=== PATIENT | male | born 1995 | race Caucasian/White ===

== ENCOUNTER 2025-03-11 08:59 | Emergency (ER) | payer OTHER ==
[~2025-03-11] VITALS: Ht 170.2 cm; Wt 82.0 kg
--- NOTE | 2025-03-11 09:28 | ED.PDOC ---
Agustint. trauma (HPI) HPI Comments 29 y/o M, AMBERLY, presents to the ED for CC of s/p fall. EMS reports, patient is coming from store where he suffered a trip and fall. Following trauma, patient is unable to ambulate; complains of current lower back numbness and pain to the back of his head. Patient denies loss of consciousness, nausea, vomiting, or bl urred vision. No other symptoms or modifying factors present at this time. Chief Complaint: Back Pain Time Seen by MD: 09:10 Reviewed notes: Nurses Notes, Medications, Allergies Home Meds Active Scripts Ibuprofen Micronized (MOTRIN TABLET) 600 Mg Tb, 600 MG PO TID PRN for 5 Days, #15 TAB *Black box warning-NSAIDS can increase risk of FL & hypertension, GI irritation, ulceration, bleed, perferation. Do not use post cardiac surgery. Use short duration/lowest effective dose. Prov:TOBY CARTER MD 03/11/25 Information Source: Patient Mode of Arrival: EMS Severity: Moderate Timing: Minutes Duration: Since onset Prehospital treatment: None Location: Back Location of laceration: None Mechanism: Fall Associated signs and symtoms: None Past Medical History PAST MEDICAL HISTORY: Denies Surgical History: Denies all surgeries Family History Family History: Unknown Social History Smoker: Non-Smoker Alcohol: Denies ETOH Use Drugs: Denies Drug Use Lives In: Home Constitutional: denies: chills, diaphoresis, fatigue, fever, malaise, sweats, weakness, others EENTM: denies: blurred vision, double vision, ear bleeding, ear discharge, ear drainage, ear pain, ear ringing, eye pain, eye redness, hearing loss, mouth pain, mouth swelling, nasal discharge, nose bleeding, nose congestion, nose pain, photophobia, tearing, throat pain, throat swelling, voice changes, others Respiratory: denies: cough, hemoptysis, orthopnea, SOB at rest, shortness of breath, SOB with excertion, stridor, wheezing, others Cardiovascular: denies: chest pain, dizzy spells, diaphoresis, Dyspnea on e xertion, edema, irregular heart beat, left arm pain, lightheadedness, palpitations, PND, syncope, others Gastrointestinal: denies: abdomen distended, abdominal pain, blood streaked bowels, constipated, diarrhea, dysphagia, difficulty swallowing, hematemesis, melena, nausea, poor appetite, poor fluid intake, rectal bleeding, rectal pain, vomiting, others Genitourinary: denies: burning, dysuria, flank pain, frequency, hematuria, incontinence, penile discharge, penile sore, pain, testicle pain, testicle swelling, urgency, others Neurological: reports: others (lower back numbness); denies: dizziness, fainting, headache, left sided numbness, left sided weakness, numbness, pares thesia, pre-existing deficit, right sided numbness, right sided weakness, seizure, speech problems, tingling, tremors, weakness Musculoskeletal: denies: back pain, gout, joint pain, joint swelling, muscle pain, muscle stiffness, neck pain, others Integumetry: denies: bruises, change in color, change in hair/nails, dryness, laceration, lesions, lumps, rash, wounds, others Allergic/Immunocompromised: denies: Difficulty Healing, Frequent Infections, Hives, Itching, others Hematologic/Lymphatic: denies: anemia, blood clots, easy bleeding, easy bruisi ng, swollen glands, others Endocrine: denies: excessive hunger, excessive sweating, excessive thirst, exce ssive urination, flushing, intolerance to cold, intolerance to heat, unexplained weight gain, unexplained weight loss, others Psychiatric: denies: anxiety, bipolar disorder, depression, hopeless, panic disorder, schizophrenia, sleepless, suicidal, others All Other Systems: Reviewed and Negative Physical Exam General Appearance: Moderate Distress HEENT: Normal ENT Inspection, Pharynx Normal, TMs Normal Neck: Full Range of Motion, Non-Tender, Normal, Normal Inspection Respiratory: Chest Non-Tender, Lungs Clear, No Accessory Muscle Use, No Respiratory Distress, Normal Breath Sounds Cardiovascular: No Edema, No JVD, No Murmur, No Gallop, Normal Peripheral Pulses, Regular Rate/Rhythm Breast Exam: Deferred Gastrointestinal: No Organomegaly, Non Tender, No Pulsatile Mass, Normal Bowel Sounds, Soft Genitalia: Deferred Pelvic: Deferred Rectal: Deferred Extremities: No calf tenderness, No pedal edema Musculoskeletal : Apperance: Normal Neurologic: Alert, No Motor Deficits, No Sensory Deficits Cerebellar Function: NOT DONE Reflexes: NOT DONE Skin: Dry, Normal Color, Warm Lymphatic: No Adenopathy Was a procedure done? Was a procedure done?: No Differential Diagnosis Multiple Trauma: Fractures, Spine Injury Neck Injury: Cervical Fracture X-Ray, Labs, Meds, VS Vital Signs Date Time Temp Pulse Resp B/P (MAP) Pulse Ox O2 Delivery O2 Flow Rate FiO2 03/11/25 09:07 98.3 81 16 125/80 (95) [address] [address] Ph: [phone] DIAGNOSTIC IMAGING Diagnostic Imaging Report : [id number] Signed PATIENT: RAMONA SALINAST: [id number] UNIT: [id number] : 1995 LOC: ER ROOM / BED: / AGE / SEX: 29 / M ADM STATUS: REG ER SERVICE 2 ORDERING PHYSICIAN: TOBY CARTER MD PROCEDURE(s): LS - LUMBAR SPINE 4+ VIEW REASON: fall ORDER NUMBER(s): [id number], ACCESSION NUMBER(s): [id number] EXAM: XY LUMBAR SPINE 4+ VIEW HISTORY: fall COMPARISON: None TECHNIQUE: Lumbar spine 3 views FINDINGS: The vertebral bodies are normal in height. There is normal alignment of the vertebrae. Disc spaces are maintained. Mild multilevel discogenic endplate changes are seen. Posterior facet arthropathy is seen at L3-S1 levels. The sacroiliac joints are intact. Paraspinal soft tissues are within normal l imits. IMPRESSION: 1. No acute osseous abnormality. 2. Multilevel degenerative disc disease and posterior facet arthropathy. ATED BY: STACY LAST MD DICTATED DATE/TIME: 03/11/25 1032 SIGNED BY: STACY LAST MD SIGNED DATE/TIME: 03/11/25 103 CC: [address] [address] Ph: [phone] DIAGNOSTIC IMAGING Diagnostic Imaging Report : [id number] Signed PATIENT: RAMONA SALINAST: [id number] UNIT: [id number] : 1995 LOC: ER ROOM / BED: / AGE / SEX: 29 / M ADM STATUS: REG ER SERVICE 0923 ORDERING PHYSICIAN: TOBY CARTER MD PROCEDURE(s): THOSP - SPINE THORACIC 2VIEW REASON: fall ORDER NUMBER(s): [id number], ACCESSION NUMBER(s): [id number] EXAM: XY SPINE THORACIC 2VIEW HISTORY: fall COMPARISON: None FINDINGS: Thoracic vertebrae are normal in height. There is normal alignment of the vertebrae. Disc spaces are maintained. No significant discogenic endplate change is noted. Paraspinal soft tissues are unremarkable. IMPRESSION: 1. No acute osseous abnormality. ATED BY: STACY LAST MD DICTATED DATE/TIME: 03/11/25 103 SIGNED BY: STACY LAST MD SIGNED DATE/TIME: 03/11/25 103 CC: Patient alert. Complaining of back pain. Pain started after fall. Vitals stable. Answering questions. Was given pain medication. No obvious injuries. Unable to move his back. Continue to monitor. X-ray of the lumbar spine reviewed does not show any acute changes. X-ray of the thoracic spine reviewed does not show any acute changes. Was given prescription of Motrin. Explained to the patient. Was told to follow up with his primary care physician. Was told to come back if there is any problem. Time of 1ST Reevaluation: 09:40 Reevaluation 1ST: Unchanged Patient Education/Counseling: Diagnosis, Treatment Family Education/Counseling: No Family Present Departure 1 Departure Time of Disposition: 09:32 Impression: Primary Impression: Degenerative disc disease Qualified Codes: M51.369 - Other intervertebral disc degeneration, lumbar region without mention of lumbar back pain or lower extremity pain Additional Impression: Musculoskeletal pain Disposition: 01 HOME / SELF CARE / HOMELESS Condition: Good e-Prescriptions Ibuprofen Micronized (MOTRIN TABLET) 600 Mg Tb 600 MG PO TID PRN for 5 Days, #15 TAB *Black box warning-NSAIDS can increase risk of FL & hypertension, GI irritation, ulceration, bleed, perferation. Do not use post cardiac surgery. Use short duration/lowest effective dose. Prov: TOBY CARTER MD 03/11/25 Discharged With: Self Critical Care Note Critical Care Time?: No Stability Stability form required: No Heart Score Heart Score: Heart Score Response (Comments) Value History N/A 0 EKG N/A 0 Age N/A 0 Risk Factors N/A 0 Troponin N/A 0 Total 0 I personally scribed for TOBY CARTER MD ([email or web address]) on 03/11/25 at 09:28. Electronically submitted by Lory Parisi ([email or web address]). I personally scribed for TOBY CARTER MD ([email or web address]) on 03/11/25 at 11:03. Electronically submitted by Lory Parisi ([email or web address]). I personally scribed for TOBY CARTER MD ([email or web address]) on 03/11/25 at 11:04. Electronically submitted by Lory Parisi ([email or web address]). TOBY CARTER MD March 11, 2025 09:28
[2025-03-11] MEDS ORDERED: ONDANSETRON HCL 4 MG/2 ML VIAL IV ONE (09:30)
[2025-03-11] MEDS ORDERED: HYDROmorphone HCL 2 MG/ML VL/or syr IV ONE (09:30)
--- NOTE | 2025-03-11 10:34 | DVH ---
EXAM: XY LUMBAR SPINE 4+ VIEW HISTORY: fall COMPARISON: None TECHNIQUE: Lumbar spine 3 views FINDINGS: The vertebral bodies are normal in height. There is normal alignment of the vertebrae. Disc spaces are maintained. Mild multilevel discogenic endplate changes are seen. Posterior facet art hropathy is seen at L3-S1 levels. The sacroiliac joints are intact. Paraspinal soft tissues are within normal limits. IMPRESSION: 1. No acute osseous abnormality. 2. Multilevel degenerative disc disease and posterior facet arthropathy.
--- NOTE | 2025-03-11 10:34 | DVH ---
EXAM: XY SPINE THORACIC 2VIEW HISTORY: fall COMPARISON: None FINDINGS: Thoracic vertebrae are normal in height. There is normal alignment of the vertebrae. Disc spaces are maintained. No significant discogenic endplate change is noted. Paraspinal soft tissues are unremarkable. IMPRESSION: 1. No acute osseous abnormality.
[2025-03-11] MEDS ORDERED: IBU600T PO (10:59)
[2025-03-11 12:23] VITALS: BP 120/54; PULSE 75; RESP 19; TEMP 98.8; O2SAT 96
[2025-03-11] MEDS: HYDROcodone-ACET 5/325MG TAB PO ONE (12:26)
== END 2025-03-11 12:46 | disposition home or self-care (01) ==
LOC: ER 08:59 → EDBD 08:59 → ER 12:44
DX: M51.360 Other intervertebral disc degeneration, lumbar region with discogenic back pain only (principal); M79.18 Myalgia, other site
CPT/HCPCS: 72070; 72110